=== PATIENT | female | born 1940 | race Hispanic/Latino ===

== ENCOUNTER 2018-02-16 10:32 | Outpatient (CLI) | payer MEDICARE, OTHER ==
--- NOTE | 2018-02-17 17:31 | Magnetic Resonance Report ---
MR angiogram was performed of the intracranial circulation 3-D [id number] spoiled grass images were obtained of the intracranial circulation. The images of the carotid arteries showed no areas of occlusion or aneurysmal dilatation. The vertebral basilar system was also patent but the basilar filled just from the right vertebral ( a normal variation) with the left vertebral appearing to end in the PICA. Some irregularity in the basilar was noted at the mid pontine region. The right posterior cerebral filled from the anterior circulation (a normal variation). Impression: mild abnormal MR angiogram of the intracranial circulation showing some irregularity in the basilar most consistent with atherosclerotic disease
--- NOTE | 2018-02-17 17:38 | Magnetic Resonance Report ---
MR scan of the cranium was performed without contrast. Pulse sequences included: 1. T1 weighted sagittal and axial images without contrast 2. T2 weighted axial and coronal images 3. FLAIR axial images 4. Diffusion-weighted axial images 5. Apparent diffusion coefficient images 6. Gradient echo axial images Views of the posterior fossa showed a normal craniocervical junction. Cerebellar pontine angles were normal with normal seventh-eighth nerve complexes. Brainstem and cerebellum were normal. The ventricular system showed no dilatation or distortion. Images of the hemispheres showed no areas of increased or decreased signal. There were areas of increased signal seen throughout the basal ganglia and external capsule consistent with araiosis and extending into the subcortical white matter. Sinuses, flow voids in the [place], orbits, pituitary and basal ganglia were normal. Impression: Abnormal MR scan of the cranium without contrast. moderate white matter araiosis
== END 2018-02-16 10:33 | disposition home or self-care (01) ==
LOC: MRI 10:32
PROVIDERS: ATTEND Specialist
DX: I63.30 Cerebral infarction due to thrombosis of unspecified cerebral artery (principal)
CPT/HCPCS: 70544; 70551

== ENCOUNTER 2019-06-13 07:15 | Day surgery (SDC) | payer MEDICARE, OTHER ==
[~2019-06-13 07:15] MED LIST: NACL 0.9% 1000 ML 1,000 ML IV SCH
[2019-06-13] MEDS ORDERED: DIPRIVAN 10 MG/ML IV ONE ×2 (07:28)
--- NOTE | 2019-06-13 08:06 | Anesthesia Day of Surgery ---
Anesthesia Day of Surgery - Day of Surgery Patient Examined: Yes Patient H&P Reviewed: Yes Patient is NPO: Yes
--- NOTE | 2019-06-13 08:06 | Anesthesia Consultation ---
Anesthesia Consult and Med Hx Date of service: 06/13/19 - Airway Anesthetic Teeth Evaluation: Partials ROM Head & Neck: Adequate Mental/Hyoid Distance: Adequate Mallampati Class: Class II Intubation Access Assessment: Good - Pulmonary Exam CTA: Yes - Cardiac Exam Cardiac Exam: RRR - Pre-Operative Health Status ASA Pre-Surgery Classification: ASA2 Proposed Anesthetic Plan: MAC - Endocrine Hx Thyroid Disease: Yes (hypothyroidism)
--- NOTE | 2019-06-13 09:10 | Procedure Note ---
Date of procedure: 06/13/19 Pre-op diagnosis: Upper GI Bleeding Post-op diagnosis: other (No active Upper GI Bleeding noted/ Mild to Moderate Erosive Esophagitis/Small,Hiatal Hernia/Gastritis/ No Peptic Ulcer Disease noted) Procedure: EGD with Biopsy Anesthesia: MAC Surgeon: LOUISA GILL Estimated blood loss: minimal Pathology: list Specimen disposition: to lab Condition: stable Disposition: same day (Treat with PPI. Avoid aspirin and NSAID for 4 days; otherwise resume home medication and follow up in 1 to 2 weeks ([phone]).)
--- NOTE | 2019-06-13 09:17 | Operative Report ---
PROCEDURE: Esophagogastroduodenoscopy with biopsy. INDICATIONS: This is a 78-year-old white female originally from [place], who has an underlying history of arthritis, who is on lot of NSAID products. She had presented to the office with complaints of upper GI bleeding for which she is having an EGD done for further assessment. DESCRIPTION OF PROCEDURE: The procedure is done after getting informed consent with MAC anesthesia. Instrument was passed through the hypopharynx into the esophagus, which showed mild to moderate distal erosive esophagitis. Biopsy was done from the distal esophagus. Stomach showed a small hiatal hernia on the retroverted view and there was some evidence of gastritis, but no peptic ulcer disease was noted within the gastric or the duodenal lumen. The pylorus is patent. There was no evidence of any active bleeding or old blood noted within the gastric lumen or the duodenal lumen. Biopsy was done from the gastric antrum to rule out for H. pylori. Additional biopsy was also done from the gastric body for atrophic gastritis. There was minimal bleeding from the biopsy sites and no complications associated with the procedure. ASSESSMENT: Upper gastrointestinal bleeding, no evidence of any active upper gastrointestinal bleeding noted at present, mild to moderate distal erosive esophagitis, small hiatal hernia, gastritis, rule out atrophic gastritis. PLAN: To treat the patient with PPI, have the patient avoid aspirin and NSAIDs for the next few days. Further treatment will be adjusted according to the biopsy findings. The patient may be tested for vitamin B12, folate and ferritin, and the patient will be asked to follow up in 1-2 weeks' time. The procedure was done in the GI lab with assistance of the GI lab team, which included RN, Britney Angela as well as Elvis melendrez and with assistance of Anesthesia. JOB# [id number] FRANCOIS/ZHANE
[2019-06-13 09:43] VITALS: BP 142/73
--- NOTE | 2019-06-13 11:44 | Post Anesthesia Evaluation ---
- Post Anesthesia Evaluation Patient Participated: Yes Airway Patent: Yes Stable Respiratory Function: Yes Nausea/Vomiting: No Temp > 96.8F: Yes Pain Manageable: Yes Adequeate Hydration: Yes Anesthesia Complications: No Block Receding Appropriately: Not Applicable Patient on Ventilator: No
== END 2019-06-13 07:16 | disposition home or self-care (01) ==
LOC: GIO 07:15
DX: K29.50 Unspecified chronic gastritis without bleeding (principal); R10.13 Epigastric pain; K20.9 Esophagitis, unspecified; K44.9 Diaphragmatic hernia without obstruction or gangrene; G47.33 Obstructive sleep apnea (adult) (pediatric); M19.90 Unspecified osteoarthritis, unspecified site; G47.30 Sleep apnea, unspecified; Z98.890 Other specified postprocedural states; Z96.643 Presence of artificial hip joint, bilateral; Z79.01 Long term (current) use of anticoagulants; Z79.899 Other long term (current) drug therapy
CPT/HCPCS: 36415; 43239; 82607; 82728; 82747; 88305; 88342; J2704; J7030

== ENCOUNTER 2020-12-06 07:01 | Day surgery (SDC) | payer MEDICARE, OTHER ==
[~2020-12-06 07:01] MED LIST changes: -NACL 0.9% 1000 ML 1,000 ML IV SCH; +SODIUM CHLORIDE 0.9% 1000 ML 1,000 ML IV SCH
--- NOTE | 2020-12-06 07:57 | Anesthesia Day of Surgery ---
Anesthesia Day of Surgery - Day of Surgery Patient Examined: Yes Patient H&P Reviewed: Yes Patient is NPO: Yes
--- NOTE | 2020-12-06 07:57 | Anesthesia Consultation ---
Anesthesia Consult and Med Hx Date of service: 12/06/20 - Airway Anesthetic Teeth Evaluation: Dentures (upper) ROM Head & Neck: Adequate Mental/Hyoid Distance: Adequate Mallampati Class: Class II Intubation Access Assessment: Probably Good - Pre-Operative Health Status ASA Pre-Surgery Classification: ASA3 Proposed Anesthetic Plan: MAC - Pulmonary Hx Smoking: No Hx Asthma: No Hx Respiratory Symptoms: No SOB: No COPD: No Home Oxygen Therapy: No Hx Pneumonia: No Hx Sleep Apnea: Yes - Cardiovascular System Hx Hypertension: No Hx Coronary Artery Disease: No Hx Heart Attack/AMI: No Hx Angina: No Hx Percutaneous Transluminal Coronary Angioplasty (PTCA): No Hx Cardia Arrhythmia: No Hx Pacemaker: No Hx Internal Defibrillator: No Hx Valvular Heart Disease: No Hx Heart Murmur: No Hx Peripheral Vascular Disease: No - Central Nervous System Hx Neuromuscular Disorder: No Hx Seizures: No CVA: Yes (3 mini strokes, last 1 was 3 years ago) Hx Back Pain: No Hx Psychiatric Problems: No - Gastrointestinal Hx Ulcer: No Hx Gastroesophageal Reflux Disease: No - Endocrine Hx Renal Disease: No Hx End Stage Renal Disease: No Hx Cirrhosis: No Hx Liver Disease: No Hx Insulin Dependent Diabetes: No Hx Non-Insulin Dependent Diabetes: No Hx Thyroid Disease: Yes (hypothyroidism) Hx Hypothyroidism: Yes Hx Hyperthyroidism: No - Hematic Hx Anemia: No Hx Sickle Cell Disease: No - Other Systems Hx Alcohol Use: Yes (occ.) Hx Substance Use: No Hx Cancer: No Hx Obesity: Yes
[2020-12-06] MEDS ORDERED: propofoL 200 MG/20 ML VIAL IV ONE (08:27)
[2020-12-06] MEDS ORDERED: LIDOCAINE MPF (2%) 20 MG/1 ML VIAL 5 ML ONE (08:27)
--- NOTE | 2020-12-06 08:50 | Procedure Note ---
Date of procedure: 12/06/20 Pre-op diagnosis: GERD/ H/O Atrophic Gastritis Post-op diagnosis: other (H/O Atrophic Gastritis/ Mild to Moderate Erosive Esophagitis/ R/O Eosinophilic esophagitis) Procedure: EGd with Biopsy Anesthesia: VIRGIL Surgeon: LOUISA GILL Estimated blood loss: minimal Pathology: list Specimen disposition: to lab Condition: stable Disposition: same day (Treat with PPI and avoid aspirin and NSAID for 4 days; otherwise resume home medication and follow up in in 1 to 2 weeks .)
--- NOTE | 2020-12-06 08:53 | Operative Report ---
PROCEDURE: Esophagogastroduodenoscopy with biopsy. INDICATIONS: This is an 80-year-old white female originally from [place], who has an EGD had shown prior history of atrophic gastritis. Last EGD was few years ago. Repeat EGD is done to make sure that there is not any further progression of his atrophic gastritis. DESCRIPTION OF PROCEDURE: The procedure was done after getting informed consent with MAC anesthesia. Instrument was passed through the hypopharynx into the esophagus, which showed [id number] erosive esophagitis. Photodocumentation and biopsy was done from the distal esophagus to assess for the severity of the erosive esophagitis and from the mid esophagus to rule out for eosinophilic esophagitis. Stomach showed gastritis. Biopsy was done from the gastric antrum, gastric body and angular incisura to rule out for H. pylori and atrophic gastritis. The pylorus was patent. The duodenum in the first and the second portion appeared normal. ASSESSMENT: Gastroesophageal reflux disease symptoms, atrophic gastritis, rule out Helicobacter pylori gastritis, [id number] erosive esophagitis, rule out eosinophilic esophagitis. PLAN: To treat the patient with PPI. Await for the biopsy results and further treatment adjustments will be according to the biopsy results. The patient will be asked to avoid aspirin and aspirin-related products for the next few days and follow up in the office in 1-2 weeks' time. Procedure was done in the GI lab with assistance of the GI lab team, which included the GI nurse, cdl service technicianJose and with assistance of anesthesia. JOB# [id number] FRANCOIS/ZHANE
[2020-12-06 09:43] VITALS: BP 143/78
--- NOTE | 2020-12-06 09:44 | History and Physical Report ---
HISTORY OF PRESENT ILLNESS: This is an 80-year-old female originally from [facility], who had an EGD done 2 years back, was noted to have chronic atrophic gastritis at that time. She has been advised to have a repeat EGD done for further assessment of any progression of her atrophic gastritis. She has lately been complaining of some abdominal pain. She does have a history of vitamin B12 deficiency and has been advised to continue with taking a vitamin B12 injection on a monthly basis. She also has chronic constipation as well as presence of an umbilical hernia. SOCIAL HISTORY: Denies history of smoking or alcohol use. No cardiac issues. No flu shots. ALLERGIES: She has no known allergies. MEDICATIONS: She is on multiple medications including Cymbalta, gabapentin, Wellbutrin, Ativan, folic acid, thyroid, lidocaine patch, Crestor, Zofran, tramadol, and Linzess. PHYSICAL EXAMINATION: VITAL SIGNS: Temperature was 97.5, blood pressure 148/90, pulse is 71, height is 5 feet 2 and weight is 190 pounds. HEENT: Showed no JVD. LUNGS: Clear to auscultation. CARDIOVASCULAR: Normal. ABDOMEN: Soft, shows some tenderness to palpation. Bowel sounds present. EXTREMITIES: No pedal edema. NEUROLOGIC: The patient is otherwise alert and oriented. ASSESSMENT: Abdominal pain, atrophic gastritis, vitamin B12 deficiency, chronic constipation, umbilical hernia. PLAN: To continue with present treatment and follow up once the EGD has been done at at the patient's convenience. JOB# [id number] FRANCOIS/ZHANE
== END 2020-12-06 09:50 | disposition home or self-care (01) ==
LOC: GIO 07:01
DX: K29.40 Chronic atrophic gastritis without bleeding (principal); K21.00 Gastro-esophageal reflux disease with esophagitis, without bleeding; G47.30 Sleep apnea, unspecified; M19.90 Unspecified osteoarthritis, unspecified site; E03.9 Hypothyroidism, unspecified; Z79.899 Other long term (current) drug therapy; Z72.89 Other problems related to lifestyle; Z98.890 Other specified postprocedural states; Z86.73 Personal history of transient ischemic attack (TIA), and cerebral infarction without residual deficits
CPT/HCPCS: 43239; 88305; 88342; J2704; J7030